=== PATIENT | male | born 1965 | race Caucasian/White ===

== ENCOUNTER → 2017-07-06 | Outpatient (CLI) | payer OTHER ==
--- NOTE | 2017-07-07 08:55 | EST ---
EXERCISE STRESS DATE OF SERVICE: 07/06/2017 AGE: 52 SEX: M HT: 69" WT: 213 PROTOCOL: Nish STAGE: 4 DURATION OF EXERCISE: 11:51 HEART RATE REST: 71 BLOOD PRESSURE REST: 123/86 MAXIMUM HEART RATE ACHIEVED: 150 MAXIMUM BLOOD PRESSURE: 169/90 85% MPHR: 143 100% MPHR: 168 METS: 12.1 CLINICAL INFORMATION: Mr. Alamo's physical examination showed a heart rate of 71, blood pressure is 120/96 mmHg. Baseline EKG showed what look s like a sinus mechanism. The patient exercised on the Nish protocol for a total of 11 minutes and achieved 12.1 METS. Maximum heart rate was 150 which was about 89% of maximum predicted heart rate. Maximum blood pressure was 169/90 mmHg. Clinically the patient did not have any symptoms of chest pain or discomfort and the EKG did not show any significant ST or T wave abnormalities consistent with ischemia. CONCLUSION: 1. Excellent exercise capacity. 2. Normal EKG in response to exercise. 3. Overall normal exercise treadmill stress test. MMODL / IJN: [id number] /
== END ==
LOC: RADNMMAIN 10:26
PROVIDERS: ATTEND Family Medicine
DX: R06.02 Shortness of breath (principal); E78.2 Mixed hyperlipidemia; I10 Essential (primary) hypertension
CPT/HCPCS: 93017

== ENCOUNTER 2020-05-15 07:11 | Day surgery (SDC) | payer BC ==
[2020-05-10 16:38] VITALS: BMI 32.1
[~2020-05-15 07:11] MED LIST: LACTATED RINGERS 1,000 ML IV SCH; LIDOCAINE 1% (10MG/ML) FOR IV START INTRADERMA PRN
[2020-05-15 07:34] VITALS: RESP 16; TEMP 98.4
[2020-05-15] MEDS ORDERED: PROPOFOL 10 MG/ML 20 ML VIAL IV ONE (07:53)
[2020-05-15] MEDS ORDERED: LIDOCAINE 1% INJ 10MG/ML (20 ML MDV) ONE (07:53)
--- NOTE | 2020-05-15 08:11 | P.PCN ---
Date of Procedure: 05/15/20 Procedure(s) Performed: BRIEF HISTORY: Patient is a 55-year-old pleasant white male scheduled for an elective colonoscopy as a part of evaluation of prior history of colon polyps. Last colonoscopy was 5 years ago. PROCEDURE PERFORMED: Colonoscopy with snare polypectomy. PREOPERATIVE DIAGNOSIS: History of colon polyps. IV sedation per Anesthesia. PROCEDURE: After informed consent was obtained, the patient, was brought into the endoscopy unit. IV sedation was administered by Anesthesia under continuous monitoring. Digital rectal examination was normal. Initially the Olympus CF-160 flexible video colonoscope was then inserted in the rectum, gradually advanced into the cecum without any difficulty. Careful examination was performed as the scope was gradually being withdrawn. Ileocecal valve and the appendiceal orifice were visualized and appeared normal. Prep was excellent. Mucosa of the cecum, ascending colon, transverse colon, descending colon, sigmoid colon, and rectum appeared normal. In the proximal rectum there was a 7-8 mm rectal polyp that was removed by snare polypectomy. Retroflexion was performed in the rectum and no lesions were seen. The patient tolerated the procedure well. IMPRESSION: 7-8 mm proximal rectal polyp status post polypectomy Rest of the colon appeared normal RECOMMENDATIONS: Findings of this examination were discussed with the patient as well as his family.. He was advised to follow with the biopsy results. If the biopsy shows an adenoma he can have a repeat colonoscopy in 5 years.
[2020-05-15 08:31] VITALS: BP 120/80; PULSE 69
== END 2020-05-15 08:41 | disposition home or self-care (01) ==
LOC: ORWHC2ENDO 07:11
PROVIDERS: ATTEND Internal Medicine Gastroenterology
DX: Z12.11 Encounter for screening for malignant neoplasm of colon (principal); K62.1 Rectal polyp; Z86.010 Personal history of colon polyps; F17.200 Nicotine dependence, unspecified, uncomplicated; K21.9 Gastro-esophageal reflux disease without esophagitis; Z97.2 Presence of dental prosthetic device (complete) (partial); Z79.899 Other long term (current) drug therapy; Z88.0 Allergy status to penicillin
CPT/HCPCS: 88305; 45385; J2001; J2704

== ENCOUNTER 2021-12-30 07:38 | Observation (INO) | payer BC ==
[2021-12-30] MEDS ORDERED: SODIUM CHLORIDE 0.9% 500 ML 500 ML IV STA (08:00)
[2021-12-30] MEDS ORDERED: KETOROLAC 15 MG/ML 1 ML VIAL IVP STA (08:00)
[2021-12-30 08:21] LABS: Basophils % (A) 0 %; Eosinophils # (A) 0.5 k/uL (0-0.7); Eosinophils % (A) 4 %; HCT 47.2 % (39.0-53.0); HGB 16.6 gm/dL (13.0-17.5); Lymphocytes # (A) 1.8 k/uL (1.0-4.8); Lymphocytes % (A) 14 %; MCH 31.4 pg (25.0-35.0); MCHC 35.1 g/dL (31.0-37.0); MCV 89.3 fL (80.0-100.0); Mean Platelet Volume 6.6; Monocytes # (A) 0.5 k/uL (0-1.0); Monocytes % (A) 4 %; Neutrophils # (A) 9.3 k/uL (1.3-7.7); Neutrophils % (A) 76 %; Platelet Count 278 k/uL (150-450); RBC 5.28 m/uL (4.30-5.90); RDW 12.4 % (11.5-15.5); WBC 12.3 k/uL (3.8-10.6)
[2021-12-30 08:33] LABS: ALT 34 U/L (4-49); AST 27 U/L (17-59); African American GFR (CKD) >90 (>60 ml/min/1.73 sqM); Albumin 3.8 g/dL (3.5-5.0); Alkaline Phosphatase 61 U/L (38-126); Amylase 50 U/L (30-110); Anion Gap 7 mmol/L; Blood Urea Nitrogen 15 mg/dL (9-20); Calcium 8.5 mg/dL (8.4-10.2); Carbon Dioxide 24 mmol/L (22-30); Chloride 103 mmol/L (98-107); Glucose 93 mg/dL (74-99); Lipase 160 U/L (23-300); Non-African American GFR(CKD) 81 (>60 ml/min/1.73 sqM); Potassium 4.5 mmol/L (3.5-5.1); Sodium 134 mmol/L (137-145); Total Bilirubin 0.9 mg/dL (0.2-1.3); Total Protein 6.4 g/dL (6.3-8.2)
--- NOTE | 2021-12-30 08:40 | ED ---
General Adult HPI - General Chief complaint: Abdominal Pain Stated complaint: Rt Side Pain Time Seen by Provider: 12/30/21 07:40 Source: patient, RN notes reviewed, old records reviewed Mode of arrival: ambulatory Limitations: no limitations - History of Present Illness Initial comments: This is a 56 old male presents emergency department stating that for the last 2 weeks she's had right upper quadrant abdominal pain that radiates into was back. Patient states she was here and worked up previously but the pain continues. Patient states he lies flat the little better. Patient states anytime he sits up it is present significant. Patient states he had a heart time riding in a car because he is in the sitting position. Patient denies any nausea vomiting. Patient states he is able to eat. Patient states he does drink daily. Patient denies any chest pain or difficulty breathing or shortness of breath per patient denies any fever chills or cough. - Related Data Home Medications Medication Instructions Recorded Confirmed Ibuprofen [Motrin Ib] 800 mg PO Q6H PRN 12/30/21 12/30/21 Allergies Allergy/AdvReac Type Severity Reaction Status Date / Time Penicillins Allergy Unknown Verified 12/30/21 08:14 Childhood Review of Systems ROS Statement: Those systems with pertinent positive or pertinent negative responses have been documented in the HPI. ROS Other: All systems not noted in ROS Statement are negative. Past Medical History Past Medical History: No Reported History Additional Past Medical History / Comment(s): Hx Colon polyp, occ heartburn. History of Any Multi-Drug Resistant Organisms: None Reported Past Surgical History: No Surgical Hx Reported Additional Past Surgical History / Comment(s): Colonoscopy Past Anesthesia/Blood Transfusion Reactions: No Reported Reaction Additional Past Anesthesia/Blood Transfusion Reaction / Comment(s): NO PRIOR SURGERIES/ANESTHESIA. Past Psychological History: No Psychological Hx Reported Smoking Status: Current every day smoker Past Alcohol Use History: Daily Past Drug Use History: Marijuana - Past Family History Father Family Medical History: Myocardial Infarction ([place]) Additional Family Medical History / Comment(s): age 61 w/ [place] General Exam - General Exam Comments Initial Comments: GENERAL: Patient is well-developed and well-nourished. Patient is nontoxic and well- hydrated and is in no acute distress. ENT: Neck is soft and supple. No significant lymphadenopathy is noted. Oropharynx is clear. Moist mucous membranes. Neck has full range of motion without eliciting any pain. EYES: The sclera were anicteric and conjunctiva were pink and moist. Extraocular movements were intact and pupils were equal round and reactive to light. Eyelids were unremarkable. PULMONARY: Unlabored respirations. Good breath sounds bilaterally. No audible rales rhonchi or wheezing was noted. CARDIOVASCULAR: There is a regular rate and rhythm without any murmurs gallops or rubs. ABDOMEN: Right upper quadrant tenderness no guarding. No CVA tenderness SKIN: Skin is clear with no lesions or rashes and otherwise unremarkable. NEUROLOGIC: Patient is alert and oriented x3. Cranial nerves II through XII are grossly intact. Motor and sensory are also intact. Normal speech, volume and content. Symmetrical smile. MUSCULOSKELETAL: Normal extremities with adequate strength and full range of motion. No lower extremity swelling or edema. No calf tenderness. LYMPHATICS: No significant lymphadenopathy is noted PSYCHIATRIC: Normal psychiatric evaluation. Limitations: no limitations Course Vital Signs 12/30/21 12/30/21 12/30/21 07:40 08:42 10:50 Temperature 98.3 F Pulse Rate 81 69 67 Respiratory 22 18 18 Rate Blood Pressure 141/103 150/102 134/87 O2 Sat by Pulse 98 99 98 Oximetry Medical Decision Making - Medical Decision Making EKG shows sinus rhythm at 74 bpm [place] interval 153 QRS is 90 QT interval 389 QTC is 460 per patient's EKG shows no ST segment elevation or depression. CT shows no acute abnormality. I will back into the room patient states she still was a 9 out of 10 when he sits up. Patient states he was in so much pain at home he took the week off of work because he couldn't possibly go to work in this condition. I spoke with some physicians agreed to admit the patient admitted the patient consult Dr. Pandey. - Lab Data Result diagrams: 12/30/21 08:10 12/30/21 08:10 Lab Results 12/30/21 12/30/21 12/30/21 Range/Units 08:10 08:10 08:10 WBC 12.3 H (3.8-10.6) k/uL RBC 5.28 (4.30-5.90) m/uL Hgb 16.6 (13.0-17.5) gm/dL Hct 47.2 (39.0-53.0) % MCV 89.3 (80.0-100.0) fL MCH 31.4 (25.0-35.0) pg MCHC 35.1 (31.0-37.0) g/dL RDW 12.4 (11.5-15.5) % Plt Count 278 (150-450) k/uL MPV 6.6 Neutrophils % 76 % Lymphocytes % 14 % Monocytes % 4 % Eosinophils % 4 % Basophils % 0 % Neutrophils # 9.3 H (1.3-7.7) k/uL Lymphocytes # 1.8 (1.0-4.8) k/uL Monocytes # 0.5 (0-1.0) k/uL Eosinophils # 0.5 (0-0.7) k/uL Basophils # 0.0 (0-0.2) k/uL Sodium 134 L (137-145) mmol/L Potassium 4.5 (3.5-5.1) mmol/L Chloride 103 (98-107) mmol/L Carbon Dioxide 24 (22-30) mmol/L Anion Gap 7 mmol/L BUN 15 (9-20) mg/dL Creatinine 1.03 (0.66-1.25) mg/dL Est GFR (CKD-EPI)AfAm >90 (>60 ml/min/1.73 sqM) Est GFR (CKD-EPI)NonAf 81 (>60 ml/min/1.73 sqM) Glucose 93 (74-99) mg/dL Plasma Lactic Acid Taurus 1.4 (0.7-2.0) mmol/L Calcium 8.5 (8.4-10.2) mg/dL Total Bilirubin 0.9 (0.2-1.3) mg/dL AST 27 (17-59) U/L ALT 34 (4-49) U/L Alkaline Phosphatase 61 (38-126) U/L Troponin I (0.000-0.034) ng/mL Total Protein 6.4 (6.3-8.2) g/dL Albumin 3.8 (3.5-5.0) g/dL Amylase 50 (30-110) U/L Lipase 160 (23-300) U/L Urine Color Urine Appearance (Clear) Urine pH (5.0-8.0) Ur Specific Ketchum (1.001-1.035) Urine Protein (Negative) Urine Glucose (UA) (Negative) Urine Ketones (Negative) Urine Blood (Negative) Urine Nitrite (Negative) Urine Bilirubin (Negative) Urine Urobilinogen (<2.0) mg/dL Ur Leukocyte Esterase (Negative) Serum Alcohol mg/dL 12/30/21 12/30/21 12/30/21 Range/Units 08:10 09:08 09:42 WBC (3.8-10.6) k/uL RBC (4.30-5.90) m/uL Hgb (13.0-17.5) gm/dL Hct (39.0-53.0) % MCV (80.0-100.0) fL MCH (25.0-35.0) pg MCHC (31.0-37.0) g/dL RDW (11.5-15.5) % Plt Count (150-450) k/uL MPV Neutrophils % % Lymphocytes % % Monocytes % % Eosinophils % % Basophils % % Neutrophils # (1.3-7.7) k/uL Lymphocytes # (1.0-4.8) k/uL Monocytes # (0-1.0) k/uL Eosinophils # (0-0.7) k/uL Basophils # (0-0.2) k/uL Sodium (137-145) mmol/L Potassium (3.5-5.1) mmol/L Chloride (98-107) mmol/L Carbon Dioxide (22-30) mmol/L Anion Gap mmol/L BUN (9-20) mg/dL Creatinine (0.66-1.25) mg/dL Est GFR (CKD-EPI)AfAm (>60 ml/min/1.73 sqM) Est GFR (CKD-EPI)NonAf (>60 ml/min/1.73 sqM) Glucose (74-99) mg/dL Plasma Lactic Acid Taurus (0.7-2.0) mmol/L Calcium (8.4-10.2) mg/dL Total Bilirubin (0.2-1.3) mg/dL AST (17-59) U/L ALT (4-49) U/L Alkaline Phosphatase (38-126) U/L Troponin I <0.012 (0.000-0.034) ng/mL Total Protein (6.3-8.2) g/dL Albumin (3.5-5.0) g/dL Amylase (30-110) U/L Lipase (23-300) U/L Urine Color Light Yellow Urine Appearance Clear (Clear) Urine pH 6.5 (5.0-8.0) Ur Specific Ketchum 1.016 (1.001-1.035) Urine Protein Negative (Negative) Urine Glucose (UA) Negative (Negative) Urine Ketones Negative (Negative) Urine Blood Negative (Negative) Urine Nitrite Negative (Negative) Urine Bilirubin Negative (Negative) Urine Urobilinogen <2.0 (<2.0) mg/dL Ur Leukocyte Esterase Negative (Negative) Serum Alcohol <10 mg/dL Disposition Clinical Impression: Abdominal pain Disposition: ADMITTED IP TO THIS HOSP Referrals: Alexi Wilkinson DO [Primary Care Provider] - 1-2 days Time of Disposition: 11:30
[2021-12-30] MEDS ORDERED: IOPAMIDOL CONTRAST (ORAL USE) VIAL PO PRN (08:51)
[2021-12-30] MEDS ORDERED: HYDROmorphone 0.5 MG/0.5 ML SYRINGE IVP STA ×2 (08:59→10:34)
[2021-12-30 09:59] LABS: Appearance,Urine Clear (Clear); Bilirubin,Urine Negative (Negative); Blood,Urine Negative (Negative); Color,Urine Light Yellow; Glucose,Urine (UA) Negative (Negative); Ketones,Urine Negative (Negative); Leukocyte Esterase,Urine Negative (Negative); Nitrite,Urine Negative (Negative); PH, Urine 6.5 (5.0-8.0); Protein,Urine Negative (Negative); Specific Gravity,Urine 1.016 (1.001-1.035); Urobilinogen,Urine <2.0 mg/dL (<2.0)
--- NOTE | 2021-12-30 11:06 | CT ---
EXAMINATION TYPE: CT abdomen pelvis w con DATE OF EXAM: 12/30/2021 COMPARISON: CT dated 12/27/2021 HISTORY: Right abdominal pain-RUQ CT DLP: 1501.9 mGycm Automated exposure control for dose reduction was used. TECHNIQUE: Helical acquisition of images was performed from the lung bases through the pelvis. CONTRAST: Performed with Oral Contrast and with IV Contrast, patient injected with 100 mL of Isovue 300. FINDINGS: LUNG BASES: No significant abnormality is appreciated. LIVER/GB: No significant abnormality is appreciated. PANCREAS: No significant abnormality is seen. SPLEEN: No significant abnormality is seen. ADRENALS: No significant abnormality is seen. KIDNEYS: A few right renal nonobstructing calculi versus tiny calcifications measuring up to 3 mm. Ri ght upper pole renal cyst without gross suspicious feature. Unremarkable kidneys otherwise. FREE AIR: No free air is visualized. RETROPERITONEAL ADENOPATHY: None visualized REPRODUCTIVE ORGANS: No significant abnormality is seen URINARY BLADDER: No significant abnormality is seen. PELVIC ADENOPATHY: No pathologically enlarged lymph nodes. OSSEOUS STRUCTURES: Degenerative changes of the visualized portion of the spine. No aggressive bone lesion. BOWEL: Mild wall thickening of the stomach, nonspecific. Duodenal diverticulum, otherwise unremarkab le duodenum and small bowel. Fecal loading of the colon. Scattered uncomplicated colonic diverticulos is. No evidence of acute diverticulitis. Normal appendix. OTHER: Minimal arterial atherosclerotic calcifications. No sizable ascites. Fat-containing inguinal h ernias, slightly larger on the right side. Very small fat-containing umbilical hernia. Bilateral glut eus meredith tiny calcifications. IMPRESSION: Fecal loading of the colon suggestive of constipation. Nonspecific mild wall thickening of the stomac h. No definite acute abnormality seen in the abdomen or the pelvis otherwise. Incidental findings as described above.
[2021-12-30] MEDS ORDERED: SODIUM CHLORIDE 0.9% 1,000 ML IV ONE (11:48)
[2021-12-30] MEDS ORDERED: ONDANSETRON 4 MG/2 ML VIAL IVP PRN (11:50)
[2021-12-30] MEDS: HYDROmorphone 0.5 MG/0.5 ML SYRINGE IVP PRN ×2 (12:27→17:53)
[2021-12-30] MEDS ORDERED: ORPHENADRINE 30 MG/ML 2 ML VIAL IVP STA (14:14)
--- NOTE | 2021-12-30 14:14 | P.HPIM ---
History of Present Illness H&P Date: 12/30/21 History of Presenting Illness: Patient is a 56-year-old male with a past medical history of EtOH use/abuse, nicotine dependence, and cannabis use. He presented to the emergency department with a chief complaint of right upper quadrant pain. Patient reports his abdominal pain began approximately 2-3 weeks ago and has progressively worsened. Patient reports it stays in his right upper quadrant and radiates into his flank and back. Patient reports movement makes this pain worse but denies having any recent falls or injuries. He reports normal healthy appetite and denies experiencing any nausea, vomiting, difficulties in or changes in urination or any other complaints. Patient denies any recent infections or fevers. He does report mild constipation with last bowel movement being approximately 3 days ago and reports typical bowel function. Is having bowel movements 2-3 times per week. In the emergency department patient was seen and fully evaluated. A CT abdomen and pelvis was completed which revealed fecal loading of the colon suggestive of constipation and nonspecific mild wall thickening of the stomach with fat-containing inguinal hernia is slightly larger on the right side and scattered uncomplicated colonic diverticulosis. EKG showing normal sinus rhythm at 74 bpm with no noted T wave or ST abnormalities. CBC revealing leukocytosis with the baby count of 12.3 and mild hyponatremia with sodium of 134. Urinalysis negative for infection. Serum alcohol less than 10. Patient was admitted under the services. Review of systems: Pertinent positives and negatives as discussed in HPI, a complete review of systems was performed and all other systems are negative. Physical exam: Vital signs reviewed and stable. General: Nontoxic, no distress and appears stated age. Derm: Skin warm and dry, normal coloration for ethnicity. Head: Atraumatic, normocephalic and symmetric. Eyes: EOMs intact, no lid lag, and anicteric sclera Mouth: no lip lesions, mucus membranes moist Cardiovascular: regular rate and rhythm with normal S1S2, no murmur, positive posterior tibial pulses bilaterally, and cap refill < 2 seconds. Lungs: Respirations even, regular, and unlabored on room air. Lungs CTA bilaterally, no rhonchi, no rales, no wheezing, and no accessory muscle usage. Abdominal: soft, nontender to palpation, no guarding, no appreciable org anomegaly Ext: ROM intact. No gross muscle atrophy, no edema, no contractures Neuro: Speech clear, face symmetrical and CN II-XII grossly intact with no noted focal neuro deficits Psych: Alert and oriented to person, place, time, and situation. Appropriate and pleasant affect. Assessment and Plan of Care: Right upper quadrant abdominal pain Constipation -A CT abdomen and pelvis was completed which revealed fecal loading of the colon suggestive of constipation and nonspecific mild wall thickening of the stomach with fat-containing inguinal hernia is slightly larger on the right side and scattered uncomplicated colonic diverticulosis. -Patient to receive continuous IV hydration. -Mag citrate 1 dose -Close monitoring of I's and O's -If no improvement in constipation with mag citrate, may consider general surgery consult at that time. Daily alcohol use, reports drinking 3-4 beers daily -CIWA Protocol with symptom triggered medication management with benzodiazepines. -Thiamine 100 mg twice a day -Multivitamin daily -Folate 1 mg daily -Seizure, fall, aspiration, and elopement precautions in place. -Urine drug screen -Continued close monitoring of electrolytes and replace as needed. -Telemetry monitoring. Nicotine dependence Educate and encourage patient on the benefits of smoking cessation and the risks of continued use. Nicotine patch The patient is admitted with an anticipated left than 2 midnight stay for evaluation of abdominal pain CODE STATUS: Full code DVT prophylaxis: Heparin Discussed with: Patient and RN Anticipated discharge date: 1-[address]: Home A total of 45 minutes was spent on the care of this complex patient more than 50% of the time was spent in counseling and care coordination. Yves Adrian NP rendered care for this patient independently, reviewed the findings and plan as documented in the note above. I did not physically speak with or examine the patient on this date. Past Medical History Past Medical History: No Reported History Additional Past Medical History / Comment(s): Hx Colon polyp, occ heartburn. History of Any Multi-Drug Resistant Organisms: None Reported Past Surgical History: No Surgical Hx Reported Additional Past Surgical History / Comment(s): Colonoscopy Past Anesthesia/Blood Transfusion Reactions: No Reported Reaction Additional Past Anesthesia/Blood Transfusion Reaction / Comment(s): NO PRIOR SURGERIES/ANESTHESIA. Past Psychological History: No Psychological Hx Reported Smoking Status: Current every day smoker Past Alcohol Use History: Daily Past Drug Use History: Marijuana - Past Family History Father Family Medical History: Myocardial Infarction ([place]) Additional Family Medical History / Comment(s): age 61 w/ [place] Medications and Allergies Home Medications Medication Instructions Recorded Confirmed Type Ibuprofen [Motrin Ib] 800 mg PO Q6H PRN 12/30/21 12/30/21 History Allergies Allergy/AdvReac Type Severity Reaction Status Date / Time Penicillins Allergy Unknown Verified 12/30/21 08:14 Childhood Physical Exam Osteopathic Statement: *. No significant issues noted on an osteopathic structural exam other than those noted in the History and Physical/Consult. Vitals: Vital Signs Temp Pulse Resp BP Pulse Ox 12/30/21 13:31 62 18 138/92 98 12/30/21 10:50 67 18 134/87 98 12/30/21 08:42 69 18 150/102 99 12/30/21 07:40 98.3 F 81 22 141/103 98 Intake and Output 12/29/21 12/30/21 12/30/21 22:59 06:59 14:59 Other: Weight 102.058 kg Results CBC & Chem 7: 12/30/21 08:10 12/30/21 08:10 Labs: Abnormal Lab Results - Last 24 Hours (Table) 12/30/21 12/30/21 Range/Units 08:10 08:10 WBC 12.3 H (3.8-10.6) k/uL Neutrophils # 9.3 H (1.3-7.7) k/uL Sodium 134 L (137-145) mmol/L
[2021-12-30] MEDS ORDERED: MAGNESIUM CITRATE 296 ML BOTTLE PO ONE (18:15)
[2021-12-30] MEDS ORDERED: LORazepam 2 MG/ML INJ IV PRN ×3 (18:50)
[2021-12-30] MEDS ORDERED: THIAMINE 100 MG/ML 2 ML VIAL IM STA (18:53)
[2021-12-30] MEDS: NICOTINE 21MG/24HR PATCH TRANSDERM SCH (20:20)
[2021-12-30] MEDS: HEPARIN SODIUM,PORCINE/PF 5,000 UNIT/0.5 ML SYRINGE SQ SCH (20:21)
[2021-12-31] MEDS: HYDROmorphone 0.5 MG/0.5 ML SYRINGE IVP PRN ×2 (01:43→08:20)
[2021-12-31 02:14] VITALS: RESP 16
[2021-12-31 06:54] LABS: Amphetamine Screen,Urine Not Detected (NotDetected); Barbiturate Screen,Urine Not Detected (NotDetected); Benzodiazepines Screen,Urine Not Detected (NotDetected); Cocaine Screen,Urine Not Detected (NotDetected); Methadone Screen, Urine Not Detected (NotDetected); Opiate Screen,Urine Detected (NotDetected); Oxycodone Screen, Urine Not Detected (NotDetected); Phencyclidine Screen,Urine Not Detected (NotDetected); Tricyclic Antidepressant,Urine Not Detected (NotDetected); Urn Cannabinoid Scrn Not Detected (NotDetected)
[2021-12-31] MEDS ORDERED: THIAMINE 100 MG TAB PO SCH (07:30)
[2021-12-31] MEDS: HEPARIN SODIUM,PORCINE/PF 5,000 UNIT/0.5 ML SYRINGE SQ SCH (08:20)
[2021-12-31] MEDS: NICOTINE 21MG/24HR PATCH TRANSDERM SCH (08:23)
[2021-12-31 09:12] LABS: HCT 45.8 % (39.6-50.0); HGB 15.9 g/dL (13.0-17.0); MCHC 34.7 g/dL (32.0-37.0); MCV 86.4 fL (80.0-97.0); NRBC Per 100 WBC 0 /100 WBCS (0.0-0.0); Platelet Count 244 X 10*3/uL (140-440); RDW 11.7 % (11.5-14.5); WBC 7.86 X 10*3/uL (4.50-10.00)
[2021-12-31] MEDS ORDERED: KETOROLAC 15 MG/ML 1 ML VIAL IVP STA (09:18)
[2021-12-31] MEDS ORDERED: ORPHENADRINE 30 MG/ML 2 ML VIAL IVP STA (09:18)
[2021-12-31 09:29] LABS: African American GFR (CKD) 86.5 (60.0-200.0); Albumin 4.1 g/dL (3.8-4.9); Albumin/Globulin Ratio 2.28 (1.60-3.17); Anion Gap 12.1 mmol/L (10.00-18.00); BUN/Creat Ratio 11.82 Ratio (12.00-20.00); Calcium 8.7 mg/dL (8.7-10.3); Carbon Dioxide 23.9 mmol/L (20.0-27.5); Globulin 1.8 g/dL (1.6-3.3); Magnesium 2.4 mg/dL (1.5-2.4); Non-African American GFR(CKD) 74.6 (60.0-200.0); Potassium 4.5 mmol/L (3.5-5.5); Total Bilirubin 0.6 mg/dL (0.30-1.20); Total Protein 5.9 g/dL (6.2-8.2)
[2021-12-31] MEDS ORDERED: bisacodyL 5 MG TABLET.DR PO SCH (09:30)
[2021-12-31] MEDS ORDERED: LIDOCAINE 5% PATCH TOPICAL SCH (10:00)
--- NOTE | 2021-12-31 10:39 | XR ---
EXAMINATION TYPE: XR ribs RT w pa chest xray DATE OF EXAM: 12/31/2021 COMPARISON: NONE HISTORY: Right flank pain TECHNIQUE: Frontal view of the chest and 4 views of the right ribs submitted FINDINGS: Heart size normal. Lungs are clear. Arthropathy of the shoulders. Chronic appearing deformi ty of the right clavicle suggesting prior fracture. No acute displaced rib fracture. Hypertrophic and degenerative changes spine. AC joint arthropathy noted. Calcification right upper quadrant. IMPRESSION: 1. No acute displaced rib fracture. 2. Correlate for possible right renal stone.
--- NOTE | 2021-12-31 14:08 | CT ---
EXAMINATION TYPE: CT thor lumbar spine wo con DATE OF EXAM: 12/31/2021 COMPARISON: CT dated 12/30/2021 HISTORY: Right flank and back pain CT DLP: 1902.5 mGycm Automated exposure control for dose reduction was used. TECHNIQUE: Multiplanar CT scan of the thoracic and lumbar spine without IV contrast administration. FINDINGS: Preserved of the dorsal kyphosis and lumbar lordosis. No significant anterolisthesis or retrolisthesi s. Partially lumbarized S1. No definite vertebral body collapse or acute displaced fracture. Degenera tive changes of the lower cervical, thoracic and lumbar spine with multilevel opposing endplate osteo phytosis. Degenerated T8-9 and T9-T10 discs. Multilevel facet facet arthropathy is also noted most ev ident at L4-5 and L5-S1 levels, more on the right side. Bilateral T1-T2 and T2-3 neuroforaminal stenosis, more on the right side. Mild right T3-4 neural fora jacinto stenosis is also noted. No other significant neuroforaminal stenosis seen in the thoracic spine . No significant bony central spinal canal stenosis seen in the thoracic or the lumbar spine. No sign ificant thoracic disc herniation or protrusion. No significant L1-2 or L2-3 disc disease, central spi nal canal stenosis or neuroforaminal stenosis. At L3-4 level: Mild diffuse posterior disc bulge, causing no significant central spinal canal stenosi s or neuroforaminal stenosis. At L4-5 level: Diffuse posterior disc bulge more inclined to the right side associated with posterior osteophytosis and slightly prominent posterior epidural fat as well as the right facet osteoarthropa thy, causing mild central spinal canal stenosis and moderate bilateral neuroforaminal stenosis, more on the right side. At L5-S1 level: Small central posterior disc protrusion with focal left foraminal protrusion, associa dileep with right facet osteoarthropathy, causing no significant central spinal canal stenosis or signif icant neuroforaminal stenosis. Scattered arterial atherosclerotic calcifications. No paraspinal lesion. Suspected nonobstructing soham culi versus vascular calcification in the right kidney. IMPRESSION: No definite vertebral body collapse or acute displaced fracture. Degenerative changes of lower cervic al, thoracic spine and lumbar spine with multilevel DDD as detailed above, their significance should be clinically correlated. Further MRI assessment of the area of interest can be considered. Other inc idental findings as described above.
[2021-12-31 14:25] VITALS: BP 132/70; PULSE 85; TEMP 98.1
--- NOTE | 2021-12-31 15:46 | P.DS ---
Providers Date of admission: 12/30/21 11:48 Expected date of discharge: 12/31/21 Attending physician: Savi Ewing DO Primary care physician: Alexi Wilkinson Hospital Course: Discharge Diagnosis: Right upper quadrant/right flank abdominal pain, improved Nonobstructing right renal calculi, patient started on Flomax and to follow up outpatient with urology. Constipation, resolved. Patient educated on constipation and high fiber diet. Daily alcohol use, reports drinking 3-4 beers daily, encouraged cessation of alcohol use. Nicotine dependence, encouraged smoking cessation Hospital Course: Patient is a 56-year-old male with a past medical history of EtOH use/abuse, nicotine dependence, and cannabis use. He presented to the emergency department with a chief complaint of right upper quadrant pain. Patient reports his abdominal pain began approximately 2-3 weeks ago and has progressively worsened. Patient reports it stays in his right upper quadrant and radiates into his flank and back. Patient reports movement makes this pain worse but denies having any recent falls or injuries. He reports normal healthy appetite and denies experiencing any nausea, vomiting, difficulties in or changes in urination or any other complaints. Patient denies any recent infections or fevers. He does report mild constipation with last bowel movement being approximately 3 days ago and reports typical bowel function. Is having bowel movements 2-3 times per week. In the emergency department patient was seen and fully evaluated. A CT abdomen and pelvis was completed which revealed fecal loading of the colon suggestive of constipation and nonspecific mild wall thickening of the stomach with fat-containing inguinal hernia is slightly larger on the right side and scattered uncomplicated colonic diverticulosis and a few right nonobstructing renal calculi. EKG showing normal sinus rhythm at 74 bpm with no noted T wave or ST abnormalities. CBC revealing leukocytosis with the baby count of 12.3 and mild hyponatremia with sodium of 134. Urinalysis negative for infection. Serum alcohol less than 10. Patient was admitted under the services. He was given mag citrate 1 dose. Patient reports he is very worried that his "rib is popped out of place again and he is now having a little pain in his back." X-ray right ribs negative for acute displaced rib fracture. CT thoracic and lumbar spine negative for acute fracture revealing multilevel degenerative disc disease. Patient's back pain more towards the flank he denied having any spinal cord tenderness upon palpation. Patient began having bowel movements and reports after his 5th bowel movement pain, his right upper quadrant/flank pain has nearly resolved and that he feels great. Patient ambulating in room without any difficulties in moving up and down from chair and bed. Patient is medically stable for discharge at this time, he was started on Flomax for the incidental finding of the nonobstructing right renal calculi and patient educated on high fiber diet. Patient to follow-up with PCP and neurology. Physical exam: Vital signs reviewed and stable. General: Nontoxic, no distress and appears stated age. Derm: Skin warm and dry, normal coloration for ethnicity. Head: Atraumatic, normocephalic and symmetric. Eyes: EOMs intact, no lid lag, and anicteric sclera Mouth: no lip lesions, mucus membranes moist Cardiovascular: regular rate and rhythm with normal S1S2, no murmur, positive posterior tibial pulses bilaterally, and cap refill < 2 seconds. Lungs: Respirations even, regular, and unlabored on room air. Lungs CTA bilaterally, no rhonchi, no rales, no wheezing, and no accessory muscle usage. Abdominal: soft, nontender to palpation, no guarding, no appreciable organomegaly Ext: ROM intact. No gross muscle atrophy, no edema, no contractures Neuro: Speech clear, face symmetrical and CN II-XII grossly intact with no noted focal neuro deficits Psych: Alert and oriented to person, place, time, and situation. Appropriate and pleasant affect. A total of 40 minutes of time were spent preparing this complex discharge summary. Yves Adrian NP rendered care for this patient independently, reviewed the findings and plan as documented in the note above. I did not physically speak with or examine the patient on this date. Patient Condition at Discharge: Stable Plan - Discharge Summary Discharge Rx Participant: No New Discharge Prescriptions: New HYDROcodone/APAP 5-325MG [Jefferson 5-325] 1 tab PO Q6HR PRN 3 Days #12 tab PRN Reason: Pain bisacodyL [Dulcolax] 5 mg PO DAILY PRN tab PRN Reason: Constipation Thiamine [Vitamin B-1] 100 mg PO BID-W/MEALS tab Tamsulosin HCl [Flomax] 0.4 mg PO DAILY 30 Days #30 capsule Continue Ibuprofen [Motrin Ib] 800 mg PO Q6H PRN PRN Reason: Pain Discharge Medication List Ibuprofen [Motrin Ib] 800 mg PO Q6H PRN 04/12/22 [History] HYDROcodone/APAP 5-325MG [Jefferson 5-325] 1 tab PO Q6HR PRN 3 Days #12 tab 12/31/21 [Rx] Tamsulosin HCl [Flomax] 0.4 mg PO DAILY 30 Days #30 capsule 12/31/21 [Rx] Thiamine [Vitamin B-1] 100 mg PO BID-W/MEALS tab 12/31/21 [Rx] bisacodyL [Dulcolax] 5 mg PO DAILY PRN tab 12/31/21 [Rx] Follow up Appointment(s)/Referral(s): Eric Workman MD [STAFF PHYSICIAN] - 2 Weeks Alexi Wilkinson DO [Primary Care Provider] - 1-2 days Patient Instructions/Handouts: How to Stop Smoking (GEN), Constipation (GEN), Kidney Stones (DC), High Fiber Diet (DC), At-Risk Alcohol Use (DC) Activity/Diet/Wound Care/Special Instructions: Activity: As tolerated. Take breaks as needed. Diet: Heart healthy and carb consistent diet. Avoid salts, or foods with hidden salts such as canned or boxed foods and frozen dinners. Extra salt makes your heart work harder and traps the fluid in your body for longer. Special Instructions: Take all of your medications as directed and remember to keep all of your doctor's appointments and follow-up as needed. Thank you for allowing us to participate in your care, it was truly a pleasure having you for our patient!!! Discharge Disposition: HOME SELF-CARE
== END 2021-12-31 16:20 | disposition home or self-care (01) ==
LOC: EC 07:38 → 6NMEDSUR 11:48
PROVIDERS: ADMIT Internal Medicine; ATTEND Internal Medicine
DX: R10.11 Right upper quadrant pain (principal); N20.0 Calculus of kidney; K59.00 Constipation, unspecified; F17.200 Nicotine dependence, unspecified, uncomplicated; D72.829 Elevated white blood cell count, unspecified; E87.1 Hypo-osmolality and hyponatremia; K40.90 Unilateral inguinal hernia, without obstruction or gangrene, not specified as recurrent; F10.10 Alcohol abuse, uncomplicated; Z86.010 Personal history of colon polyps; Z71.3 Dietary counseling and surveillance; Z71.6 Tobacco abuse counseling; Z71.9 Counseling, unspecified; Z71.41 Alcohol abuse counseling and surveillance of alcoholic; Z88.0 Allergy status to penicillin; Z82.49 Family history of ischemic heart disease and other diseases of the circulatory system; M51.36 Other intervertebral disc degeneration, lumbar region; M51.34 Other intervertebral disc degeneration, thoracic region
CPT/HCPCS: 96376 ×2; 96361 ×3; 96372 ×2; 96374; 96375; 99285; 36415; 93005; 80053 ×2; 82150; 83605; 83690; 83735; 84484; 85025; 85027; 81003; 80306; 80320; 71101; 72128; 72131; 74177; G0378 ×2; J2360 ×2; J3411; J1885 ×2; J1170 ×2; Q9967; J1644 ×2

== ENCOUNTER 2022-01-13 15:09 | Emergency (ER) | payer BC ==
[2022-01-13] MEDS ORDERED: SODIUM CHLORIDE 0.9% 1,000 ML IV STA (15:20)
[2022-01-13] MEDS ORDERED: MORPHINE SULFATE 4 MG/ML SYRINGE IVP STA (15:36)
[2022-01-13] MEDS ORDERED: ONDANSETRON 4 MG/2 ML VIAL IVP STA (15:36)
[2022-01-13] MEDS ORDERED: KETOROLAC 15 MG/ML 1 ML VIAL IVP STA (15:37)
[2022-01-13 15:50] VITALS: RESP 18
[2022-01-13] MEDS ORDERED: FAMOTIDINE 20 MG/2 ML VIAL IV STA (15:52)
[2022-01-13] MEDS ORDERED: MAG HYDROX/AL HYDROX/SIMETH 30 ML CUP PO PRN (15:52)
[2022-01-13] MEDS ORDERED: diphenhydrAMINE 50 MG/ML 1 ML VIAL IVP STA (15:53)
--- NOTE | 2022-01-13 15:55 | ED ---
General Adult HPI - General Stated complaint: abd pain Time Seen by Provider: 01/13/22 15:20 Source: patient, EMS, RN notes reviewed, old records reviewed Mode of arrival: EMS Limitations: no limitations - History of Present Illness Initial comments: Patient is a 56-year-old male with past medical history remarkable for frequent alcohol use but no history of withdrawals presents emergency Department complaining of persistent right upper quadrant abdominal pain. Was seen prev iously earlier this month for some more symptoms. Is uncertain. Or straining with another from something. He denies any history of abdominal surgery. States the pain was manageable but over the last today seemed to have gotten worse. No known provocative factor. Endorses a crampy, sharp pain to the right upper quadrant, as well as right shoulder pain. Endorses nausea but no episodes of emesis. Denies constipation. Denies any change in bowel habits. Denies any urinary complaints including dysuria or hematuria. Denies any chest pain, shortness of breath. Takes no medications at home. His no other acute complaints at this time. He was at his doctor's office, and was brought to the emergency department for further evaluation due to the pain via EMS. On evaluation of the imaging done at that visit, there was a nonobstructing right renal calculus but no other explanation for the findings on patient's physical exam or further upper quadrant pain. Patient does have "hepatocellular disease." - Related Data Home Medications Medication Instructions Recorded Confirmed Ibuprofen [Motrin Ib] 800 mg PO Q6H PRN 12/30/21 01/13/22 Diclofenac Sodium [Voltaren] 75 mg PO BID 01/13/22 01/13/22 Previous Rx's Medication Instructions Recorded Tamsulosin HCl [Flomax] 0.4 mg PO DAILY 30 Days #30 capsule 12/31/21 Thiamine [Vitamin B-1] 100 mg PO BID-W/MEALS tab 12/31/21 Famotidine [Pepcid] 20 mg PO DAILY 14 Days #14 tablet 01/13/22 Mag Hydrox/Al Hydrox/Simeth 30 ml PO BID PRN #300 ml 01/13/22 [Maalox] Ondansetron Odt [Zofran Odt] 4 mg PO Q8HR PRN 3 Days #9 tab 01/13/22 Allergies Allergy/AdvReac Type Severity Reaction Status Date / Time Penicillins Allergy Unknown Verified 01/13/22 17:45 Childhood Review of Systems ROS Statement: Those systems with pertinent positive or pertinent negative responses have been documented in the HPI. Review of Systems: CONST: Denies fever EYES: Denies blurry vision ENT: Denies nasal congestion C/V: Denies Chest pain RESP: Denies shortness of breath GI: Endorses abdominal pain : Denies dysuria SKIN: Denies rash. MSK: Endorses right shoulder pain NEURO: Denies headache ROS Other: All systems not noted in ROS Statement are negative. Past Medical History Past Medical History: No Reported History Additional Past Medical History / Comment(s): Hx Colon polyp, occ heartburn. History of Any Multi-Drug Resistant Organisms: None Reported Past Surgical History: No Surgical Hx Reported Additional Past Surgical History / Comment(s): Colonoscopy Past Anesthesia/Blood Transfusion Reactions: No Reported Reaction Additional Past Anesthesia/Blood Transfusion Reaction / Comment(s): NO PRIOR SURGERIES/ANESTHESIA. Past Psychological History: No Psychological Hx Reported Smoking Status: Current every day smoker Past Alcohol Use History: Daily Past Drug Use History: Marijuana - Past Family History Father Family Medical History: Myocardial Infarction ([place]) Additional Family Medical History / Comment(s): age 61 w/ [place] General Exam - General Exam Comments Initial Comments: General: Appears in no acute distress. HEAD: Normal with no signs of head trauma. EYES: PERRLA, EOMI, conjunctiva normal, no discharge. ENT: Hearing grossly intact, normal oropharynx. RESPIRATORY: Clear breath sounds bilaterally. No wheezes, rales, or rhonchi. C/V: Regular rate and rhythm. S1 and S2 auscultated, no edema, peripheral pulses 2+ and intact throughout ABD: Abdomen soft, nondistended. Mild right upper quadrant tenderness to palpation. No rebound tenderness. No guarding. No peritoneal signs. No CVA tenderness to percussion. EXT: Normal range of motion, no obvious deformity SKIN: No rashes or lesions observed on exposed skin. NEURO: Alert and oriented 4. Limitations: no limitations Course Vital Signs 01/13/22 15:11 Temperature 97.9 F Pulse Rate 81 Respiratory 18 Rate Blood Pressure 141/120 O2 Sat by Pulse 96 Oximetry Medical Decision Making - Medical Decision Making Based on the patient's presentation and physical exam, I'm concerned for hepatobiliary pathology for his current symptoms. Cannot rule out atypical ACS presentation, therefore we will obtain a screening EKG as well as troponin addition to abdominal laboratory studies. Patient received CT imaging a few weeks ago, and therefore we will start with x-ray as well as ultrasound of the abdomen. He will be given GI cocktail as well as IV fluids and analgesia. Patient was in agreement this plan. EKG shows no signs of acute ischemia.X-ray revealed nonspecific bowel gas pattern. Gallbladder ultrasound revealed no signs of gallstones or evidence of acute cholecystitis. Laboratory studies were remarkable for no leukocytosis. Troponin is nondetectable. Remainder the labs are unremarkable. This time we are still waiting for the patient's urine, however is having no acute symptoms at this time. We discussed at length with the patient likely requires is an upper endoscopy. Patient is frustrated, as he has been doing with this pain for the last 3-4 weeks with no explanation for it. This is the third visit to the emergency department for similar complaints. He is unable to follow up with the head of human resources, Dr. Lees for multiple weeks to months. I discussed with him that for this endoscopy to be completed, he can follow-up with a surgeon, and I will provide him with Dr. Pandey and Dr. Francis's names for follow-up. He expressed understanding. We will attempt to treat the pain with Pepcid, Maalox at home. He will be given ODT Zofran. He expressed understanding. Pain has improved but has not fully gone. Patient has received multiple CT scans over the last few weeks all showing no expedition for his symptoms that he is still having. I do not believe that a repeat computed tomography scan at this time, especially in the setting of normal laboratory studies as well as a normal ultrasound and x-ray with no new symptoms will reveal any acute findings. He expressed understanding. He will be given his prescriptions as well as follow up information for the neurosurgeons. Patient will be discharged home in fair condition. I did offer the patient admission for pain control, however would like to go home, as I did explain that does not require emergent endoscopy and is unlikely to be completed on this admission. I will provide the patient with a prescription for Zofran, Maalox, famotidine. I instructed the patient to follow up with their PCP in the next 3 days. I provided contact information for follow up with Dr. BhDr. Tito vanegas. I explained that the patient should return to the emergency department if they experience any worsening symptoms. Strict return precautions were discussed with the patient. The patient expressed understanding of these instructions. I answered all questions that the patient had. The patient was discharged home in fair condition with their prescriptions and follow up information. - Lab Data Result diagrams: 01/13/22 15:24 01/13/22 15:24 Lab Results 01/13/22 01/13/22 01/13/22 Range/Units 15:24 15:24 15:24 WBC 10.0 (3.8-10.6) k/uL RBC 5.49 (4.30-5.90) m/uL Hgb 16.8 (13.0-17.5) gm/dL Hct 49.5 (39.0-53.0) % MCV 90.1 (80.0-100.0) fL MCH 30.6 (25.0-35.0) pg MCHC 34.0 (31.0-37.0) g/dL RDW 11.9 (11.5-15.5) % Plt Count 340 (150-450) k/uL MPV 7.1 Neutrophils % 61 % Lymphocytes % 25 % Monocytes % 7 % Eosinophils % 4 % Basophils % 1 % Neutrophils # 6.1 (1.3-7.7) k/uL Lymphocytes # 2.5 (1.0-4.8) k/uL Monocytes # 0.7 (0-1.0) k/uL Eosinophils # 0.4 (0-0.7) k/uL Basophils # 0.1 (0-0.2) k/uL PT 10.6 (9.0-12.0) sec INR 1.0 (<1.2) APTT 25.7 (22.0-30.0) sec Sodium 135 L (137-145) mmol/L Potassium 4.3 (3.5-5.1) mmol/L Chloride 103 (98-107) mmol/L Carbon Dioxide 27 (22-30) mmol/L Anion Gap 5 mmol/L BUN 12 (9-20) mg/dL Creatinine 1.03 (0.66-1.25) mg/dL Est GFR (CKD-EPI)AfAm >90 (>60 ml/min/1.73 sqM) Est GFR (CKD-EPI)NonAf 81 (>60 ml/min/1.73 sqM) Glucose 86 (74-99) mg/dL Calcium 8.7 (8.4-10.2) mg/dL Total Bilirubin 0.4 (0.2-1.3) mg/dL AST 22 (17-59) U/L ALT 27 (4-49) U/L Alkaline Phosphatase 63 (38-126) U/L Troponin I (0.000-0.034) ng/mL Total Protein 6.7 (6.3-8.2) g/dL Albumin 4.1 (3.5-5.0) g/dL Amylase 50 (30-110) U/L Lipase 108 (23-300) U/L 01/13/22 Range/Units 15:24 WBC (3.8-10.6) k/uL RBC (4.30-5.90) m/uL Hgb (13.0-17.5) gm/dL Hct (39.0-53.0) % MCV (80.0-100.0) fL MCH (25.0-35.0) pg MCHC (31.0-37.0) g/dL RDW (11.5-15.5) % Plt Count (150-450) k/uL MPV Neutrophils % % Lymphocytes % % Monocytes % % Eosinophils % % Basophils % % Neutrophils # (1.3-7.7) k/uL Lymphocytes # (1.0-4.8) k/uL Monocytes # (0-1.0) k/uL Eosinophils # (0-0.7) k/uL Basophils # (0-0.2) k/uL PT (9.0-12.0) sec INR (<1.2) APTT (22.0-30.0) sec Sodium (137-145) mmol/L Potassium (3.5-5.1) mmol/L Chloride (98-107) mmol/L Carbon Dioxide (22-30) mmol/L Anion Gap mmol/L BUN (9-20) mg/dL Creatinine (0.66-1.25) mg/dL Est GFR (CKD-EPI)AfAm (>60 ml/min/1.73 sqM) Est GFR (CKD-EPI)NonAf (>60 ml/min/1.73 sqM) Glucose (74-99) mg/dL Calcium (8.4-10.2) mg/dL Total Bilirubin (0.2-1.3) mg/dL AST (17-59) U/L ALT (4-49) U/L Alkaline Phosphatase (38-126) U/L Troponin I <0.012 (0.000-0.034) ng/mL Total Protein (6.3-8.2) g/dL Albumin (3.5-5.0) g/dL Amylase (30-110) U/L Lipase (23-300) U/L - EKG Data -: EKG Interpreted by Me EKG Comments: 12-lead Electrocardiogram Interpretation Note EKG was reviewed and interpreted by myself. 12-lead ECG performed at 1529 is interpreted by me as revealing normal sinus rhythm at a rate of 74 beats per minute. Garfield is normal. MS interval is 157 ms, QRS duration is 94 ms, QTc is 415 ms.. There were no ST or T wave abnormalities to suggest myocardial isch emia or injury. R wave progression across the precordium was satisfactory. By my interpretation this EKG is non-diagnostic for acute ischemia. Disposition Clinical Impression: Abdominal pain of unknown etiology Disposition: HOME SELF-CARE Condition: Fair Instructions (If sedation given, give patient instructions): Abdominal Pain (ED) Additional Instructions: Unknown cause for your abdominal pain at this time. Recommend outpatient upper endoscopy with Dr. Lees or attempt to make an appointment with Dr. Pandey or Dr. Francis, who can also complete this procedure to further evaluate your stomach and upper GI tract searching for the source of your pain. Can also discuss with your primary care physician other GI options for follow up. Please return if any worsening symptoms, including unbearable pain, nausea, vomiting, fevers or anything that concerns you as a change in your acute on chronic pain. Prescriptions: Mag Hydrox/Al Hydrox/Simeth [Maalox] 30 ml PO BID PRN #300 ml PRN Reason: Dyspepsia Famotidine [Pepcid] 20 mg PO DAILY 14 Days #14 tablet Ondansetron Odt [Zofran Odt] 4 mg PO Q8HR PRN 3 Days #9 tab PRN Reason: Nausea Is patient prescribed a controlled substance at d/c from ED?: No Referrals: Alexi Wilkinson DO [Primary Care Provider] - 1-2 days Adis Pandey MD [STAFF PHYSICIAN] - 1-2 days Apollo Francis MD [Medical Doctor] - 1-2 days Time of Disposition: 17:40
--- NOTE | 2022-01-13 15:58 | XR ---
EXAMINATION TYPE: XR KUB DATE OF EXAM: 01/13/2022 3:50 PM CLINICAL HISTORY: Right upper quadrant pain TECHNIQUE: Two Upright KUB images of the abdomen are obtained. COMPARISON: CT abdomen and pelvis December 30, 2021 FINDINGS: Scattered gas is seen in non-distended small bowel loops. Gas and fecal material is seen in non-distended colon and rectum. There is no visceromegaly, pneumoperitoneum, or abnormal calcificati on appreciated. The lung bases are clear and the osseous structures are intact. IMPRESSION: Overall nonobstructive bowel gas pattern redemonstrated.
[2022-01-13 16:07] LABS: Basophils # (A) 0.1 k/uL (0-0.2); Basophils % (A) 1 %; Eosinophils # (A) 0.4 k/uL (0-0.7); Eosinophils % (A) 4 %; HCT 49.5 % (39.0-53.0); HGB 16.8 gm/dL (13.0-17.5); Lymphocytes # (A) 2.5 k/uL (1.0-4.8); Lymphocytes % (A) 25 %; MCH 30.6 pg (25.0-35.0); MCV 90.1 fL (80.0-100.0); Mean Platelet Volume 7.1; Monocytes # (A) 0.7 k/uL (0-1.0); Monocytes % (A) 7 %; Neutrophils # (A) 6.1 k/uL (1.3-7.7); Neutrophils % (A) 61 %; Platelet Count 340 k/uL (150-450); RBC 5.49 m/uL (4.30-5.90); RDW 11.9 % (11.5-15.5)
[2022-01-13 16:12] LABS: Partial Thromboplastin Time 25.7 sec (22.0-30.0); Prothrombin Time 10.6 sec (9.0-12.0)
[2022-01-13 16:24] LABS: ALT 27 U/L (4-49); AST 22 U/L (17-59); African American GFR (CKD) >90 (>60 ml/min/1.73 sqM); Albumin 4.1 g/dL (3.5-5.0); Alkaline Phosphatase 63 U/L (38-126); Amylase 50 U/L (30-110); Anion Gap 5 mmol/L; Blood Urea Nitrogen 12 mg/dL (9-20); Calcium 8.7 mg/dL (8.4-10.2); Carbon Dioxide 27 mmol/L (22-30); Chloride 103 mmol/L (98-107); Glucose 86 mg/dL (74-99); Lipase 108 U/L (23-300); Non-African American GFR(CKD) 81 (>60 ml/min/1.73 sqM); Potassium 4.3 mmol/L (3.5-5.1); Sodium 135 mmol/L (137-145); Total Bilirubin 0.4 mg/dL (0.2-1.3); Total Protein 6.7 g/dL (6.3-8.2)
[2022-01-13] MEDS ORDERED: MAG HYDROX/AL HYDROX/SIMETH 30 ML CUP PO STA (16:32)
--- NOTE | 2022-01-13 16:34 | US ---
EXAMINATION TYPE: US gallbladder DATE OF EXAM: 01/13/2022 COMPARISON: US, CT 2 weeks ago. CLINICAL HISTORY: RUQ pain. EC patient with continued RUQ pain since prior US; right renal stone EXAM MEASUREMENTS: Liver Length: 19.9 cm Gallbladder Wall: 0.2 cm CBD: 0.4 cm Right Kidney: 12.3 x 6.2 x 5.2 cm Pancreas: tail obscured by overlying bowel gas Liver: enlarged; hyperechoic suggests fatty liver Gallbladder: wnl Evidence for sonographic Johnson's sign: tender here and at level of right kidney CBD: wnl Right Kidney: superior pole shadowing renal stone still noted = 1.0 x 1.3 x 0.8cm; upper cortical cy st seen = 1.7 x 1.4 x 1.1cm; prominent renal pelvis. Visualized pancreas appears within normal limits. Visualized liver remains heterogeneously hyperechoi c. Gallbladder shows no mobile shadowing gallstones. No right-sided hydronephrosis. A few simple appe aring thin-walled cyst in the right kidney are redemonstrated. IMPRESSION: No shadowing mobile gallstones or convincing ultrasound evidence for acute cholecystitis.
[2022-01-13 18:10] VITALS: BP 132/93; PULSE 79; TEMP 98
== END 2022-01-13 17:51 | disposition home or self-care (01) ==
LOC: EC 15:09
DX: R10.9 Unspecified abdominal pain (principal); F17.200 Nicotine dependence, unspecified, uncomplicated; Z88.0 Allergy status to penicillin
CPT/HCPCS: 99285; 96374; 96375; 96361; 36415; 93005; 80053; 82150; 83690; 84484; 85025; 85610; 85730; 74018; 76705; J2270; J1200; J2405; J1885